=== PATIENT | male | born 1960 | race Caucasian/White ===

== ENCOUNTER 2018-02-26 07:28 | Day surgery (SDC) | payer BC ==
[2018-02-25 15:02] LABS: Potassium 4.1 mEq/L (3.6-5.0)
[2018-02-25 15:11] LABS: Absolute Lymphocytes (CBC) 3.2 K/uL (0.7-4.9); Absolute Monocytes 0.8 K/uL (0.1-1.3); Absolute Neutrophil 4.6 K/uL (1.8-8.0); Basophils % 0.5 % (0-1.3); Eosinophils % 1.7 % (0-4.4); Lymphocytes % 36.9 % (15.3-44.8); MCH 30.2 pg (27.0-35.0); MCV 91.3 fL (80-100); MPV 8.4 fL (7.6-11.3); Monocytes % 8.9 % (3.3-12.3); RBC Red Blood Cell Count 5.37 M/uL (4.33-5.43)
[2018-02-25 15:30] LABS: Albumin 4.1 g/dL (3.2-5.5); Bilirubin Direct 0.1 mg/dL (0-0.2); Bilirubin Total 0.7 mg/dL (0.3-1.2); Protein, Total 7.2 g/dL (6.0-8.3)
--- NOTE | 2018-02-26 06:23 | EKG ---
Test Date: 2018-02-25 Test Time: 14:39:37 Promotions Assistant Sales Marketing: JOSE M MEASUREMENT RESULTS: Intervals: Rate: 73 SC: 144 QRSD: 92 QT: 352 QTc: 387 [place]: P: 66 SC: 144 QRS: 14 T: 29 INTERPRETIVE STATEMENTS: Normal sinus rhythm Normal ECG Compared to ECG 09/12/2011 19:20:23 No significant changes Electronically Signed On 02-26-18 06:22:55 CDT by Rey Persaud
--- OUTSIDE RECORDS SUMMARY | 2018-02-26 07:31 | XMS REPORT ---
:1960 Author Organization [facility] Address [address] [place] [phone] Phone Allergies, Adverse Reactions, Alerts Allergy Name Reaction Description Start Date Severity Status Provider No Known Allergies Ela Leo MA Conditions or Problems Problem Name Problem Onset Status Entry Provider Comment Standard Annotate Code Date Date Description ASTIGMATISM 367.20 Active Justine Astigmatism, 10/17 10/17 [place] unspecified MYOPIA 367.1 Active Justine Myopia 10/17 10/17 [place] PRESBYOPIA 367.4 Active Justine Presbyopia 10/17 10/17 [place] High 272.0 Active Charlie Pure cholesterol Mahan hypercholesterolemi POSTPARTUM RN-C a Chest pain 786.50 Active Charlie Unspecified chest 06/12 06/12 Mahan pain POSTPARTUM RN-C Cigarette 305.1 Active Charlie Tobacco use smoker 06/12 06/12 Mahan disorder POSTPARTUM RN-C Hypertension 401.9 Active Charlie Unspecified 06/12 06/12 Mahan essential POSTPARTUM RN-C hypertension Screening, colon ICD-V76.51 Inactive Charlie cancer Mahan POSTPARTUM RN-C Preventative ICD-V70.0 Inactive Charlie health care Mahan POSTPARTUM RN-C Screening, colon V76.51 Resolved Charlie Screening for cancer Mahan malignant POSTPARTUM RN-C neoplasms of colon Preventative V70.0 Resolved Charlie Routine general health care Mahan medical POSTPARTUM RN-C examination at a health care facility Medication List Medication Instructions Start Stop Generic NDC Status Provider Patient Date Date Name Instruction NITROSTAT Place one NITROGLYCERIN 28096579953 Active Charlie Active 0.4 MG tablet Mahan SUBLINGUAL under the POSTPARTUM RN-C TABLET tongue SUBLINGUAL every 5 minutes as needed for chest pain for max of three doses LISINOPRIL 10 Take one LISINOPRIL 10 [id number] LISINOPRIL Inactive MG ORAL TABLET tablet by MG ORAL mouth TABLET once daily LISINOPRIL Take LISINOPRIL 49560903946 No Charlie Active 10 MG ORAL one Longer Mahan TABLET tablet Active POSTPARTUM RN-C by mouth once daily Vital Signs Date Name Value Unit Range Description blood pressure, diastolic 88 mm[Hg] BP uribe blood pressure, systolic 143 mm[Hg] BP sys height E&M 70 [in_us] Bdy height pulse rate E&M 78 /min Heart rate respiratory rate E&M 16 /min Resp rate temperature E&M 98.7 [degF] Body temperature weight E&M 237 [lb_av] Weight Measured blood pressure, diastolic, second 114 mm[Hg] BP uribe observation blood pressure, diastolic 119 mm[Hg] BP uribe blood pressure, systolic, second 158 mm[Hg] BP sys observation blood pressure, systolic 168 mm[Hg] BP sys height E&M 70 [in_us] Bdy height pulse rate E&M 78 /min Heart rate temperature E&M 97.8 [degF] Body temperature weight E&M 233 [lb_av] Weight Measured Diagnostic Results Date Name Value Unit Range Description Lab Report: CBC With Differential/Platelet, Comp. Metabolic Panel (14), ... - Hematology basophils as percent of blood leukocytes 0 % Lab Report: CBC With Differential/Platelet, Comp. Metabolic Panel (14), ... - Chemistry calcium, serum 10.1 mg/dL 8.7-10.2 Lab Report: CBC With Differential/Platelet, Comp. Metabolic Panel (14), ... - Hematology lymphocyte count, blood, automated 3.1 X10E3/UL 10*3/mm3 0.7- 3.1 Lab Report: CBC With Differential/Platelet, Comp. Metabolic Panel (14), ... - Chemistry urea nitrogen, blood 11 mg/dL 6-24 Lab Report: CBC With Differential/Platelet, Comp. Metabolic Panel (14), ... - Hematology monocyte count, blood, automated 0.7 X10E3/UL 10*3/uL 0.1-0.9 Lab Report: CBC With Differential/Platelet, Comp. Metabolic Panel (14), ... - Chemistry immature granulocytes, percentage of total cells, blood 0 % urea nitrogen/creatinine ratio, serum 11 9-20 Lab Report: CBC With Differential/Platelet, Comp. Metabolic Panel (14), ... - Genetics/fertility eGFR if 94 mL/min/1.73m2 >59 Lab Report: CBC With Differential/Platelet, Comp. Metabolic Panel (14), ... - Chemistry creatinine, serum 1.03 mg/dL 0.76-1.27 Lab Report: CBC With Differential/Platelet, Comp. Metabolic Panel (14), ... - Hematology mean corpuscular volume, RBC 90 fL 79-97 Lab Report: CBC With Differential/Platelet, Comp. Metabolic Panel (14), ... - Chemistry chloride, serum 100 mmol/L 96-106 Lab Report: CBC With Differential/Platelet, Comp. Metabolic Panel (14), ... - Hematology lymphocytes as percent of blood leukocytes 33 % Lab Report: CBC With Differential/Platelet, Comp. Metabolic Panel (14), ... - Chemistry triglyceride, serum, fasting 222 mg/dL 0-149 Lab Report: CBC With Differential/Platelet, Comp. Metabolic Panel (14), ... - Hematology erythrocyte (RBC) count 5.30 X10E6/UL 10*6/mm3 4.14-5.80 Lab Report: CBC With Differential/Platelet, Comp. Metabolic Panel (14), ... - Chemistry Estimated Glomerular Filtration Rate (calc) 81 mL/min/1.73m2 > 59 Lab Report: CBC With Differential/Platelet, Comp. Metabolic Panel (14), ... - Hematology platelet count 281 X10E3/UL 10*3/mm3 562-885 9027/09/27 red blood cell distribution width 14.7 % 12.3-15.4 Lab Report: CBC With Differential/Platelet, Comp. Metabolic Panel (14), ... - Chemistry carbon dioxide, venous blood 26 mmol/L 18-29 protein, total, serum 7.2 g/dL 6.0-8.5 HDL cholesterol, serum 40 mg/dL >39 sodium, serum 141 mmol/L 622-908 5061/09/27 hemoglobin A1C, blood, as % of total hemoglobin 5.6 % 4.8-5.6 Lab Report: CBC With Differential/Platelet, Comp. Metabolic Panel (14), ... - Hematology eosinophils as percent of blood leukocytes 2 % Lab Report: CBC With Differential/Platelet, Comp. Metabolic Panel (14), ... - Chemistry albumin/globulin ratio, serum 1.8 1.2-2.2 Absolute Neutrophils 5.4 X10E3/UL 10*3/uL 1.4-7.0 alkaline phosphatase, serum 73 U/L 39-117 Lab Report: CBC With Differential/Platelet, Comp. Metabolic Panel (14), ... - Hematology basophil count, absolute 0.0 x10E3/uL 0.0-0.2 Lab Report: CBC With Differential/Platelet, Comp. Metabolic Panel (14), ... - Chemistry alanine aminotransferase (SGPT), serum 21 U/L 0-44 Lab Report: CBC With Differential/Platelet, Comp. Metabolic Panel (14), ... - Hematology Eosinophil Absolute Count 0.2 X10E3/UL 10*3/uL 0.0-0.4 Lab Report: CBC With Differential/Platelet, Comp. Metabolic Panel (14), ... - Chemistry LDL cholesterol, serum 158 mg/dL 0-99 Lab Report: CBC With Differential/Platelet, Comp. Metabolic Panel (14), ... - Hematology monocytes as percent of blood leukocytes 7 % mean corpuscular hemoglobin, RBC 30.8 pg 26.6-33.0 Lab Report: CBC With Differential/Platelet, Comp. Metabolic Panel (14), ... - Chemistry cholesterol, serum 242 mg/dL 100-199 Lab Report: CBC With Differential/Platelet, Comp. Metabolic Panel (14), ... - Hematology mean corpuscular hemoglobin concentration, RBC 34.2 G/DL % 31.5- 35.7 Lab Report: CBC With Differential/Platelet, Comp. Metabolic Panel (14), ... - Chemistry bilirubin, serum, total 0.5 mg/dL 0.0-1.2 Lab Report: CBC With Differential/Platelet, Comp. Metabolic Panel (14), ... - Hematology hemoglobin, blood 16.3 g/dL 12.6-17.7 neutrophils as percent of blood 58 % leukocytes leukocyte count, blood 9.4 X10E3/UL 10*3/mm3 3.4-10.8 hematocrit, blood 47.7 % 37.5-51.0 Lab Report: CBC With Differential/Platelet, Comp. Metabolic Panel (14), ... - Chemistry blood glucose, random 105 mg/dL 65-99 potassium, serum 5.0 mmol/L 3.5-5.2 globulin, serum 2.6 1.5-4.5 aspartate aminotransferase (SGOT), serum 20 U/L 0-40 albumin, serum 4.6 g/dL 3.5-5.5 very low density lipoproteins 44 mg/dL 5-40 Encounters Date Encounter Provider Code Facility Est Patient Exp Charlie Mahan POSTPARTUM RN-C CPT-28306 [facility] 14:17:49 CDT Problem - 39352 New Patient Detailed Charlie Mahan POSTPARTUM RN-C CPT-68039 [facility] 08:37:26 CDT - 70494 Procedures Code Procedure Name Date Entry Date Standard Description CPT-66731 Xray - Chest - PA & Lat 12:42:42 - InHouse CDT CPT-38145 EKG - Tracing Only 11:22:22 CDT
[2018-02-26] MEDS ORDERED: Ringers Lactate 1,000 ML IV ONE ×2 (08:23→12:38)
[2018-02-26] MEDS ORDERED: CEFOXITIN/SWI 1gm 1 GM/10 ML SYR ONE (09:24)
[2018-02-26] MEDS ORDERED: LIDOCAINE 1% MPF 5 ML VIAL ONE (11:01)
[2018-02-26] MEDS ORDERED: PROPOFOL 200 MG/20 ML VIAL IV ONE (11:01)
[2018-02-26] MEDS ORDERED: ROCURONIUM 50 MG/5 ML VIAL IV ONE (11:01)
[2018-02-26] MEDS ORDERED: FENTANYL CITR 100 MCG/2 ML ONE ×2 (11:01→11:42)
[2018-02-26] MEDS ORDERED: MIDAZOLAM HCL 2 MG/2 ML INJ ONE (11:01)
[2018-02-26] MEDS ORDERED: GLYCOPYRROLATE 0.2 MG/ML SYR ONE (11:32)
[2018-02-26] MEDS ORDERED: KETOROLAC 30 MG/ML INJ ONE (11:32)
[2018-02-26] MEDS ORDERED: NEOSTIGMINE 1 MG/ML -5 ML SYRINGE ONE (11:33)
[2018-02-26] MEDS ORDERED: MEPERIDINE HCL 25 MG/0.5 ML ONE ×3 (12:35→12:49)
[2018-02-26] MEDS ORDERED: ONDANSETRON 4 MG/2 ML VIAL ONE (12:35)
--- NOTE | 2018-02-26 12:42 | P.BOP ---
Preoperative diagnosis: acute cholecystitis, symptomatic cholelithiasis Postoperative diagnosis: same Primary procedure: Laparoscopic cholecystectomy Estimated blood loss: <10cc Specimen: gb Findings: as above Anesthesia: General Complications: None Drain(s): Other Transferred to: Recovery Room Condition: Good
[2018-02-26 12:48] VITALS: O2SAT 100
[2018-02-26] MEDS: FENTANYL CITR 100 MCG/2 ML ONE ×2 (12:57→13:05)
[2018-02-26] MEDS: HYDROCODONE/APAP 5/325 MG TAB ONE ×2 (13:50→15:20)
[2018-02-26] MEDS ORDERED: HYDROCODONE/APAP 5/325 MG TAB ONE (15:23)
[2018-02-26 16:29] VITALS: TEMP 97.6
[2018-02-26 16:30] VITALS: BP 135/88
--- NOTE | 2018-02-28 01:33 | OP ---
Date of Procedure: 02/26/2018 Surgeon: Bryce Fierro MD Anesthesiologist: Dr. Wolf. Preoperative Diagnosis: Acute cholecystitis, symptomatic cholelithiasis. Postoperative Diagnosis: Acute cholecystitis, symptomatic cholelithiasis. Procedure: Laparoscopic cholecystectomy. Anesthesia: General plus local. Indication For Procedure: This is the case of a 57-year-old patient, who came to us with on and off abdominal pain, epigastric, right upper quadrant, associated with nausea and vomiting on and off. He has been dealing with this for the last few weeks. Finally, he investigated his gallbladder and fou nd to have the disease in that area and patient wanted the gallbladder excised. The benefits, altern atives, and risks of laparoscopic, possible open cholecystectomy fully explained to the patient, whic h include but are not limited to infection, bleeding, damage to adjacent structures, anesthesia compl ication, cholelithiasis, bile leak, pancreatitis, [place], or even . He also understands this may no t relieve any symptoms. He might need more than one surgical intervention. He understood and signed the consent. Description Of Procedure: The patient was brought to the operating room, placed in supine position. Anesthesia was done without complication. Abdominal area was prepped and draped in usual sterile fa shion. Marcaine 0.5% injected for local anesthetic, followed by sharp incision of skin in the infrau mbilical region. Incision was carried down to fascia, which was opened under direct vision. Periton eum was encountered and opened under direct vision. Vicryl #1 placed inside the fascia. Jones troc ar was carefully introduced. No bleeding was obtained. After that I proceeded then to place 2 more trocars, 5 mm each one of them, in the right upper quadrant. We visualized the area of the gallbladd er, looked like a distended thickened gallbladder. We put an Endo needle under direct visualization and proceeded to deflate the gallbladder under direct visualization. After that I proceeded to remov e the needle, put a grasper on the fundus of the gallbladder, another grasper in the infundibulum, re tracted the gallbladder in the inferolateral fashion exposing the triangle of Calot and outstanding c ritical view of safety. Cystic duct and cystic artery were clearly isolated free circumferentially a nd a connection between those and the gallbladder was clearly identified. Small cystic artery branch was identified also. We proceeded on to check the cystic duct. It was a little bit bigger than the 5 mm clips. We made sure that we protected common bile duct at all times. We changed the trocar on the epigastric area to a 12-mm trocar, put an Endo MARCIE 45 mm 3.5, and transected the cystic duct. N o bile leak. The cystic artery was ligated with 3 clips proximal, 1 clip distal, and ligation in mid dle. A small cystic artery branch was also ligated using the same technique. The hepatic artery was protected at all times. Common bile duct was protected at all times. Gallbladder was removed from liver using Bovie cauterizer and removed from abdominal cavity using an EndoCatch through the umbilic al incision. The area was inspected once again. No bile leak. No bleeding. Clips were intact. Ga llbladder fossa with no bleeding. At that moment, I proceeded to remove the trocars under direct vis ion. Deflated pneumoperitoneum. Closed the fascia with #1 Vicryl including also the 12 mm trocar on the epigastric area, also closed with #1 Vicryl. Irrigation was done. Subcutaneous tissue closed w ith 3-0 chromic and skin with serenity. Sponge count and instrument counts were correct. The patient tolerated the procedure well. The patient was sent to recovery in stable condition. DISCHARGE SUMMARY Diagnosis: Acute cholecystitis, symptomatic cholelithiasis. Procedure: Laparoscopic cholecystectomy. Disposition: Home. Activity: As tolerated. No heavy lifting. Followup: Follow up in my office in 1 week. Call for appointment [phone]. Keep area dry for 48 ho urs, then may shower. Medications: See orders. KATHRYN/DALEL Voice ID: [id number] Report ID: [id number]
== END 2018-02-26 15:35 | disposition home or self-care (01) ==
LOC: PRE 07:28 → OR 15:35
PROVIDERS: ATTEND Surgery
PROC: 0FT44ZZ Resection of Gallbladder, Percutaneous Endoscopic Approach (ICD-10-PCS; principal; 2018-02-26 09:15)
DX: K80.12 Calculus of gallbladder with acute and chronic cholecystitis without obstruction (principal); F17.210 Nicotine dependence, cigarettes, uncomplicated
CPT/HCPCS: 36415; 80048; 80076; 82150; 83690; 85025; 88304; 88312; 93005; J2175; J2250; J2405; J2710; J3010

== ENCOUNTER 2022-03-04 20:44 | Observation (INO) | payer BC ==
--- OUTSIDE RECORDS SUMMARY | 2022-03-04 20:46 | XMS REPORT | Continuity of Care Document ---
:1960 Author Organization [facility] t Address [address] [place] [address] Care Team Providers Name Role Phone luigi Attending Clinician Unavailable Erwin Attending Clinician [phone] Kalli Attending Clinician [phone] Wei Pool Attending Clinician Unavailable Bharath Attending Clinician Unavailable Daniel Attending Clinician Unavailable Erwin Unavailable [phone] Igor Unavailable [phone] Kalli Unavailable [phone] Payers Payer Name Policy Type Policy Number Effective Date Expiration Date S ource Self Pay P [id number] 2017 00:00:00 Problems Condition Condition Condition Status Onset Resolution Last Treating Co mments Source Name Details Category Date Date Treatment Clinician Date Presbyopia Condition Active 2020-092021-08-23 Adrian Hood - OU 10-24 15:19:03 Marco Casey 00:00: ty 00 Health Regular Condition Active 2020-092021-08-23 Karen Hood astigmatis 10-24 15:19:03 Marco romero m, left 00:00: ty eye 00 Health Hyperopia, Condition Active 2020-092021-08-23 Adrian Hood right 10-24 15:19:03 Marco Casey 00:00: ty 00 Health ASTIGMATIS Condition Active 2021-08-23 Adrian Costa M 15:14:15 Justine Communi 00:00: ty 00 Health MYOPIA Condition Active 2021-08-23 Karen Costa 2 15:14:15 Justine Communi 00:00: ty 00 Health PRESBYOPIA Condition Active 2021-08-23 CostaAdrian hicks 2 15:14:15 Just[facility] Communi 00:00: ty 00 Health High Condition Active 2016-092017-07-11 Duane Mahan egzhane cholestero 14:12:29 Charlie Sam uni l 00:00: ty 00 Health Hypertensi Condition Active 2017-07-10 Adrian Mahan on 06-12 10:30:13 Charlie Communi 00:00: ty 00 Health Cigarette Condition Active 2017-07-10 Adrian Mahan smoker 06-12 10:30:13 Charlie Communi 00:00: ty 00 Health Chest pain Condition Active 2017-07-10 Adrian Mahan 06-12 10:30:13 Charlie Communi 00:00: ty 00 Health Primary Primary Problem Active 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 - [facility] left knee left knee [facility] History of Past Illness Condition Condition Condition Status Onset Resolution Last Treating Co mments Source Name Details Category Date Date Treatment Clinician Date Screening, Condition Inactiv 2016-092017-07-11 2017-07-11 Adrian Mahan colon e 00:00:00 14:17:54 Charlie Cassidy i cancer 00:00: ty 00 Health Preventati Condition Inactiv 2017-07-10 2017-07-10 Adrian Mahan ve health e 06-12 00:00:00 10:54:01 Charlie Com tim care 00:00: ty 00 Health Allergies, Adverse Reactions, Alerts This patient has no known allergies or adverse reactions. Social History Social Habit Start Date Stop Date Quantity Comments Source time of call 2018-01-29 2018-01-29 01/29/2018 11:32 [facility] 11:32:00 11:32:00 AM [facility] Health PHQ2 Questionairre 2017-07-10 2017-07-10 [facility] Score 09:58:36 09:58:36 [facility] passive cigarette 2017-07-10 2017-07-10 No [facility] smoke exposure 09:58:36 09:58:36 [facility] assessment of health 2017-07-10 2017-07-10 Adequate [place] cy literacy (NCQA [facility] 09:58:36 09:58:36 Renee fan 2014 Standards, Health 3C10) social history 2017-07-10 2017-07-10 reviewed today [facility] reviewed E&M 09:58:36 09:58:36 [facility] drug use 2017-07-10 2017-07-10 Never [facility] 09:58:36 09:58:36 [facility] alcohol use 2017-07-10 2017-07-10 Never [facility] 09:58:36 09:58:36 [facility] albumin, serum 2017-06-12 2017-06-12 4.6 g/dL [facility] 11:42:00 11:42:00 [facility] cigarettes, number 2017-06-12 2017-06-12 pack a day [facility] smoked per day 10:18:30 10:18:30 [facility] sexual orientation 2017-06-12 2017-06-12 Heterosexual Lega cy 10:18:30 10:18:30 [facility] sex at 2017-06-12 2017-06-12 Male [facility] 10:18:30 10:18:30 [facility] patient considered 2017-06-12 2017-06-12 No [facility] to be homeless 10:18:30 10:18:30 [facility] Smoking Status Start Date Stop Date Source Smokes tobacco daily (finding) 2017-07-10 09:58:36 [facility] Medications Ordered Filled Start Stop Current Ordering Indication Dosage Frequency Signature Comments Components Source Medication Medication Date Date Medication? Clinician (SIG) Name Name Wesley Olson 2019- No Benjamin 1 tablet Com mon [id number] [facility] 00:00: 00:00 - [facility] 00 :00 [facility] NITROSTAT 2016-[address] one Leg acy (NITROGLYCE 0-25 Mahan tablet Com tim RIN) 0.4 MG 00:00: under the t y SUBL 00 tongue Health every 5 minutes as needed for chest pain for max of three doses (LISINOPRIL 2016- No Take one L egacy ) 10 MG 06-12 tablet by Commun i TABS 00:00: 00:00 mouth once ty 00 :00 daily Health ibuprofen ibuprofen Yes Benjamin 1 tab C gema Castro [facility] Vital Signs Vital Name Observation Time Observation Value Comments Source blood pressure, 2017-07-10 09:58:36 88 mm[Hg] Leg[facility] diastolic Health blood pressure, 2017-07-10 09:58:36 143 mm[Hg] Leg[facility] systolic Health respiratory rate E&M 2017-07-10 09:58:36 16 /min [facility] Health oxygen saturation, 2017-07-10 09:58:36 97 /min [facility] oximetry Health pulse rate 2017-07-10 09:58:36 78 /min [facility] weight E&M 2017-07-10 09:58:36 237 [lb_av] [facility] weight in kilograms 2017-07-10 09:58:36 107.73 kg L [facility] E&M Health temperature E&M 2017-07-10 09:58:36 98.7 [degF] Legac y [facility] Health temperature site 2017-07-10 09:58:36 tympanic L[facility] Health height in 2017-07-10 09:58:36 [facility] E&M Health blood pressure, 2017-06-12 10:18:30 168 mm[Hg] Legac y [facility] systolic Health temperature site 2017-06-12 10:18:30 tympanic [facility] oxygen saturation, 2017-06-12 10:18:30 97 /min [facility] oximetry Health pulse rate 2017-06-12 10:18:30 78 /min [facility] temperature E&M 2017-06-12 10:18:30 97.8 [degF] Legac y [facility] Health weight E&M 2017-06-12 10:18:30 233 [lb_av] [facility] weight in kilograms 2017-06-12 10:18:30 105.91 kg L [facility] E&M Health height in 2017-06-12 10:18:30 177.80 [facility] E[facility]M Health blood pressure, 2017-06-12 10:18:30 119 mm[Hg] Legac y [facility] diastolic Health Procedures Procedure Date / Time Performed Performing Clinician Sourc e Spherocyl, SV, plano 2019-04-28 15:22:14 Costa, Justine [facility] to +/- 4.00d sphere, Health 0.12 to 2.00d cyl, per lens Frames, purchases 2019-04-28 15:21:30 Costa, Justine [facility] Tint, photochromatic, 2018-03-31 09:45:39 Costa, Justine [facility] Community per lens Health Sphere, SV, plano to 2018-03-31 09:44:56 Costa, Justine [facility] plus or minus 4.00, Health per lens Spherocyl, bif, plano 2018-01-13 08:54:30 Costa, Justine [facility] to +/- 4.00d sphere, Health 0.12 to 2.00d cyl, per lens Frames, purchases 2018-01-13 08:53:48 Costa, Justine [facility] Spherocyl, SV, plano 2017-10-17 08:04:08 Costa, Justine [facility] Community to +/- 4.00d sphere, Health 0.12 to 2.00d cyl, per lens EKG - Tracing Only 2017-06-12 11:18:06 Charlie Mahan Co [facility] Dental - Internal 2017-06-12 11:12:46 Charlie Mahan Com [facility] Health Encounters Start End Encounter Admission Attending Care Care Encounter Source Date/Time Date/Time Type Type Clinicians Facility Department ID 2022-01-26 Outpatient psiyadi [facility] [id number] [facility] 08:35:03 [id number] [facility] 2021-08-25 Outpatient psijimons [facility] [id number] [facility] 20:31:46 [id number] [facility] 2021-08-23 2021-08-23 Office Marco Hood [facility] Encoun ter/ [facility] 00:00:00 00:00:00 Visit [id number] Com tim [id number] [facility] 2020-05-16 2020-05-16 [facility] [id number] Common 10:05:00 10:05:00 t [facility] 2018-12-08 2018-12-08 [facility] [id number] Common 09:40:00 09:40:00 t Bone Bone and Spiri t and Joint [facility] 2018-11-10 2018-11-10 [facility] [id number] Common 09:30:00 09:30:00 t Bone Bone and Spiri t and Joint [facility] 2018-10-30 2018-10-30 [facility] [id number] Common 11:11:00 11:11:00 t Bone Bone and Spiri t and Joint [facility] 2018-10-23 2018-10-23 [facility] [id number] Common 15:45:00 15:45:00 t Bone Bone and Spiri t and Joint [facility] 2018-10-21 2018-10-21 [facility] [id number] Common 11:04:00 11:04:00 t Bone Bone and Spiri t and Joint [facility] 2018-10-21 2018-10-21 [facility] [id number] Common 08:00:00 08:00:00 t Bone Bone and Spiri t and [facility] 2017-07-10 2017-07-11 Office Charlie Mahan [facility] [id number] [facility] 00:00:00 00:00:00 Visit Ela Pool [id number] [facility] [employer] Messaging 2017-06-12 2017-06-13 Office Charlie Mahan [facility] [id number] [facility] 00:00:00 00:00:00 Visit Yenni Sinha [id number] [facility] Results Test Description Test Time Test Comments Results Result Comments Source hemoglobin A1C, blood, as % of total hemoglobin 2017-06-12 1 1:42:00 Test Item Value Reference Range Interpretation Comme nts hemoglobin A1C, blood, as % of total hemoglobin (test code = 5.6 % 4.8-5.6 4548-4) [facility], [id number] 11:42:00 Test Item Value Reference Range Interpretation Comments LDL cholesterol, serum (test code = 158 mg/dL 0-99 H 2088-09) [facility] low density [id number] 11:42:00 Test Item Value Reference Range Interpretation Comments very low density lipoproteins (test 44 mg/dL 5-40 H code = 2090-7) [facility]HDL cholesterol, [id number] 11:42:00 Test Item Value Reference Range Interpretation Comments HDL cholesterol, serum (test code = 40 mg/dL >39 2085-05) [facility]lycer[facility], serum, [id number] 11:42:00 Test Item Value Reference Range Interpretation Comments triglyceride, serum, fasting (test 222 mg/dL 0-149 H code = 2571-8) [facility]cholesterol, [id number] 11:42:00 Test Item Value Reference Range Interpretation Comments cholesterol, serum (test code = 242 mg/dL 100-199 H 2092-) [facility] Healthalanine aminotransferase (SGPT), [id number] 11:42:00 Test Item Value Reference Range Interpretation Comments alanine aminotransferase (SGPT), serum 21 1/L 0-44 (test code = 1742-6) [facility] Healthaspartate aminotransferase (SGOT), [id number] 11:42:00 Test Item Value Reference Range Interpretation Comments aspartate aminotransferase (SGOT), 20 1/L 0-40 serum (test code = 1920-8) [facility] Healthalkaline phosphatase, [id number] 11:42:00 Test Item Value Reference Range Interpretation Comments alkaline phosphatase, serum (test code 73 1/L 39-117 = 1783-0) [facility]bilirubin, serum, [id number] 11:42:00 Test Item Value Reference Range Interpretation Comments bilirubin, serum, total (test code 0.5 mg/dL 0.0-1.2 = 1975-2) [facility] Healthalbumin/globulin ratio, [id number] 11:42:00 Test Item Value Reference Range Interpretation Comments albumin/globulin ratio, 1.8 (unknown unit) 1.2-2.2 serum (test code = 1759-0) [facility] Healthglobulin, [id number] 11:42:00 Test Item Value Reference Range Interpretation Comments globulin, serum (test code 2.6 (unknown unit) 1.5-4.5 = 2336-6) [facility] Healthalbumin, [id number] 11:42:00 Test Item Value Reference Range Interpretation Comments albumin, serum (test code = 1751-7) 4.6 g/dL 3.5-5.5 [facility] Healthprotein, total, [id number] 11:42:00 Test Item Value Reference Range Interpretation Comments protein, total, serum (test code = 7.2 g/dL 6.0-8.5 2885-2) [facility] Healthcalcium, [id number] 11:42:00 Test Item Value Reference Range Interpretation Comments calcium, serum (test code = 10.1 mg/dL 8.7-10.2 1999-) [facility]carbon dioxide, venous [id number] 11:42:00 Test Item Value Reference Range Interpretation Comments carbon dioxide, venous blood (test 26 mmol/L -29 code = 2026-1) [facility] Healthchloride, [id number] 11:42:00 Test Item Value Reference Range Interpretation Comments chloride, serum (test code = 100 mmol/L 96-106 5-0) [facility] Healthpotassium, [id number] 11:42:00 Test Item Value Reference Range Interpretation Comments potassium, serum (test code = 5.0 mmol/L 3.5-5.2 2823-3) [facility] Healthsodium, [id number] 11:42:00 Test Item Value Reference Range Interpretation Comments sodium, serum (test code = 2951-2) 141 mmol/L 134-144 [facility] Healthurea nitrogen/creatinine ratio, [id number] 11:42:00 Test Item Value Reference Range Interpretation Comments urea nitrogen/creatinine 11 (unknown unit) 9-20 ratio, serum (test code = 3097-3) [facility] HealtheGFR if [id number] 11:42:00 Test Item Value Reference Range Interpretation Comments eGFR if 94 mL/min/{1.73 m2} >59 (test code = 81112-7) [facility] HealthEstimated Glomerular Filtration Rate (calc)2017-06-12 11:42:00 Test Item Value Reference Range Interpretation Comments Estimated Glomerular 81 mL/min/{1.73 m2} >59 Filtration Rate (calc) (test code = 65691-0) [facility] Healthcreatinine, [id number] 11:42:00 Test Item Value Reference Range Interpretation Comments creatinine, serum (test code = 1.03 mg/dL 0.76-1.27 2160-0) [facility] Healthurea nitrogen, [id number] 11:42:00 Test Item Value Reference Range Interpretation Comments urea nitrogen, blood (test code = 11 mg/dL 6-24 3094-0) [facility] Healthblood glucose, [id number] 11:42:00 Test Item Value Reference Range Interpretation Comments blood glucose, random (test code = 105 mg/dL 65-99 H 2339-0) [facility] Healthimmature granulocytes, percentage of total cells, blood 2017-06-12 11:42:00 Test Item Value Reference Range Interpretation Comments immature granulocytes, percentage of 0 % total cells, blood (test code = 20747-7) [facility] Healthbasophil count, [id number] 11:42:00 Test Item Value Reference Range Interpretation Comments basophil count, absolute (test 0.0 x10E3/uL 0.0-0.2 code = 98931-4) [facility] HealthEosinophil Absolute [id number] 11:42:00 Test Item Value Reference Range Interpretation Comments Eosinophil Absolute Count (test 0.2 X10E3/UL 0.0-0.4 code = 32857-5) [facility] Healthmonocyte count, blood, [id number] 11:42:00 Test Item Value Reference Range Interpretation Comments monocyte count, blood, automated 0.7 X10E3/UL 0.1-0.9 (test code = 742-7) [facility] Healthlymphocyte count, blood, [id number] 11:42:00 Test Item Value Reference Range Interpretation Comments lymphocyte count, blood, 3.1 X10E3/UL 0.7-3.1 automated (test code = 731-0) [facility] HealthAbsolute [id number] 11:42:00 Test Item Value Reference Range Interpretation Comments Absolute Neutrophils (test code 5.4 X10E3/UL 1.4-7.0 = 45206-1) [facility] Healthbasophils as percent of blood [id number] 11:42:00 Test Item Value Reference Range Interpretation Comments basophils as percent of blood 0 % leukocytes (test code = 707-0) [facility] Healtheosinophils as percent of blood [id number] 11:42:00 Test Item Value Reference Range Interpretation Comments eosinophils as percent of blood 2 % leukocytes (test code = 713-8) [facility] Healthmonocytes as percent of blood [id number] 11:42:00 Test Item Value Reference Range Interpretation Comments monocytes as percent of blood 7 % leukocytes (test code = 5905-5) [facility] Healthlymphocytes as percent of blood [id number] 11:42:00 Test Item Value Reference Range Interpretation Comments lymphocytes as percent of blood 33 % leukocytes (test code = 736-9) [facility] Healthneutrophils as percent of blood [id number] 11:42:00 Test Item Value Reference Range Interpretation Comments neutrophils as percent of blood 58 % leukocytes (test code = 770-8) [facility] Healthplatelet [id number] 11:42:00 Test Item Value Reference Range Interpretation Comments platelet count (test code = 281 X10E3/UL 150-379 777-3) [facility] Healthred blood cell distribution [id number] 11:42:00 Test Item Value Reference Range Interpretation Comments red blood cell distribution width 14.7 % 12.3-15.4 (test code = 788-0) [facility] hemoglobin concentration, [id number] 11:42:00 Test Item Value Reference Range Interpretation Comments mean corpuscular hemoglobin 34.2 G/DL 31.5-35.7 concentration, RBC (test code = 786-4) [facility] corpuscular hemoglobin, [id number] 11:42:00 Test Item Value Reference Range Interpretation Comments mean corpuscular hemoglobin, RBC 30.8 pg 26.6-33.0 (test code = 785-6) [facility] Healthmean corpuscular volume, [id number] 11:42:00 Test Item Value Reference Range Interpretation Comments mean corpuscular volume, RBC (test code 90 fL 79-97 = 787-2) [facility] Healthhematocrit, [id number] 11:42:00 Test Item Value Reference Range Interpretation Comments hematocrit, blood (test code = 4544-3) 47.7 % 37.5-51.0 [facility] Healthhemoglobin, [id number] 11:42:00 Test Item Value Reference Range Interpretation Comments hemoglobin, blood (test code = 16.3 g/dL 12.6-17.7 718-7) [facility] Healtherythrocyte (RBC) [id number] 11:42:00 Test Item Value Reference Range Interpretation Comments erythrocyte (RBC) count (test 5.30 X10E6/UL 4.14-5.80 code = 789-8) [facility] Healthleukocyte count, [id number] 11:42:00 Test Item Value Reference Range Interpretation Comments leukocyte count, blood (test 9.4 X10E3/UL 3.4-10.8 code = 6690-2) [facility]
[2022-03-04] MEDS ORDERED: ASPIRIN 81 MG CHEWABLE TABLET ONE (21:25)
[2022-03-04 21:38] LABS: Absolute Lymphocytes (CBC) 1.8 K/uL (0.7-4.9); Hematocrit 39.1 % (39.6-49.0); MPV 7.6 fL (7.6-11.3); Protime INR 1.05; RBC Red Blood Cell Count 4.35 M/uL (4.33-5.43)
[2022-03-04 21:39] LABS: Albumin 3.5 g/dL (3.4-5.0); Bilirubin Direct 0.1 mg/dL (0-0.2); Bilirubin Total 0.5 mg/dL (0.2-1.0); Potassium 3.6 mmol/L (3.5-5.1); Protein, Total 7.2 g/dL (6.4-8.2); Troponin High Sensitivity 10.5 pg/mL (<58.9)
--- NOTE | 2022-03-04 21:49 | RAD REPORT ---
EXAM DESCRIPTION: RAD - Chest Single View - 03/04/2022 9:36 pm CLINICAL HISTORY: CHEST PAIN COMPARISON: CHEST PA AND LAT 2 VIEW dated 11/18/2013; CHEST PA AND LAT 2 VIEW dated 02/28/2003 FINDINGS: Lines: None. Lungs: No evidence of edema or pneumonia. Pleural: No significant pleural effusions or pneumothorax. Cardiac: The heart size is within normal limits. Bones: No acute fractures. Other: IMPRESSION: No acute cardiopulmonary disease.
--- NOTE | 2022-03-04 22:17 | ER ---
Nurse's Notes [facility] Name: Primitivo Scott Age: 61 yrs Sex: Male : 1960 Arrival Date: 03/04/2022 Time: 20:46 Bed 18 Private MD: Diagnosis: Chest pain, unspecified Presentation: 03/04 20:57 Chief complaint: [place] having pain sm5 underneath his armpit and started getting sweaty and thought he was going to pass out. denies etoh. Coronavirus screen: Vaccine status: Patient reports being unvaccinated. Ebola Screen: No symptoms or risks identified at this time. Initial Sepsis Screen: Does the patient meet any 2 criteria? No. Patient's initial sepsis screen is negative. Does the patient have a suspected source of infection? No. Patient's initial sepsis screen is negative. Risk Assessment: Do you want to hurt yourself or someone else? Patient reports no desire to harm self or others. Onset of symptoms was March 04, 2022. 20:57 Method Of Arrival: Ambulatory [facility] 20:57 Acuity: ALMAZ 3 5 Triage Assessment: 20:58 General: Appears in no apparent distress. Behavior is cooperative. Pain: Complains of sm5 pain in chest and armpit. Neuro: No deficits noted. [place] Agitation-Sedation Scale (RASS): 0 - Alert and Calm Level of Consciousness is awake, alert, obeys commands, Oriented to person, place, time, situation. Cardiovascular: Reports chest pain, Capillary refill < 3 seconds Patient's skin is warm and dry. Rhythm is sinus arrythmia. Historical: - Allergies: 20:58 No Known Allergies; sm5 - Home Meds: 20:58 None [Active]; sm5 - PMHx: 20:58 None; sm5 - Immunization history:: Client reports having NOT received the Covid vaccine. - Social history:: Smoking status: Patient reports the use of cigarette tobacco products, smokes one pack cigarettes per day. Patient/guardian denies using alcohol. Screenin:59 Abuse screen: Denies threats or abuse. Denies injuries from another. Nutritional sm5 screening: No deficits noted. Tuberculosis screening: No symptoms or risk factors identified. Fall Risk None identified. Assessment: 20:59 Pain: Complains of pain in chest Pain radiates to left armpit Pain began 2 hours ago. [facility] 22:00 Reassessment: No changes from previously documented assessment. Patient and/or family [facility] updated on plan of care and expected duration. Pain level reassessed. Vital Signs: 20:57 BP 129 / 94; Pulse 75; Resp 13; Temp 98.5(O); Pulse Ox 99% on R/A; Weight 99.79 kg; 5 Height 5 ft. 10 in. (177.80 cm); Pain 2/10; 22:51 BP 129 / 81; Pulse 65; Resp 20; Pulse Ox 99% on R/A; 5 03/05 00:03 BP 114 / 70; Pulse 62; Resp 17; Pulse Ox 97% on R/A; [facility] 03/04 20:57 Body Mass Index 31.57 (99.79 kg, 177.80 cm) [facility] ED Course: 03/04 20:46 Patient arrived in ED. ja2 20:47 Alicia Lepe, RAJI is Primary Nurse. 5 20:49 Reggie Glaser NP is PHCP. pm1 20:49 Alejandro Martin MD is Attending Physician. pm1 20:58 Triage completed. 5 20:59 Arm band placed on right wrist. EKG completed in triage. Results shown to MD. 5 20:59 Patient has correct armband on for positive identification. Placed in gown. Bed in low sm5 position. Call light in reach. Side rails up X2. Client placed on continuous cardiac and pulse oximetry monitoring. NIBP monitoring applied. 21:02 Initial lab(s) drawn, by me, sent to lab. EKG done, by ED staff, reviewed by Reggie Glaser NP. Inserted saline lock: 20 gauge in left antecubital area, using aseptic technique. Blood collected. 21:03 Adult w/ patient. Warm blanket given. monitoring manager on. Pulse ox on. NIBP on. oe 21:11 LFT's Sent. 5 21:11 Basic Metabolic Panel Sent. 5 21:11 CBC with Diff Sent. 5 21:11 Magnesium Sent. 5 21:11 NT PRO-BNP Sent. 5 21:11 PT-INR Sent. 5 21:11 Troponin HS Sent. 5 21:12 Initial lab(s) drawn, by me, sent to lab. EKG done, by ED staff, reviewed by Reggie Glaser NP. 21:38 XRAY Chest (1 view) In Process Unspecified. EDMS 22:16 Na Toscano MD is Hospitalizing Provider. pm1 03/05 00:02 No provider procedures requiring assistance completed. Patient admitted, IV remains in [address] Patient maintains SpO2 saturation greater than 95% on room air. Administered Medications: 03/04 21:21 Drug: Aspirin Chewable Tablet 324 mg Route: PO; [facility] 22:52 Follow up: Response: No adverse reaction [facility] Medication: 20:59 VIS not applicable for this client. [facility] Outcome: 22:16 Decision to Hospitalize by Provider. pm1 03/05 00:02 Admitted to Tele accompanied by tech, via wheelchair, with chart, Report called to alessia Fang RN Condition: stable Instructed on the need for admit. 00:04 Patient left the ED. [facility] Signatures: Dispatcher [employer] EDWI Reggie Glaser, FATEMEH GRAIN TRADER pm1 Khlaif Cbaezas Maria Pauly Nolasco Sarah, RAJI RN alessia
--- NOTE | 2022-03-04 22:17 | EDPHYS ---
Physician Documentation [facility] Name: Primitivo Scott Age: 61 yrs Sex: Male : 1960 Arrival Date: 03/04/2022 Time: 20:46 Bed 18 Private MD: ED Physician Alejandro Martin HPI: 03/04 21:06 This 61 yrs old Male presents to ER via Ambulatory with complaints of Chest Pain. pm1 21:06 The patient or guardian reports chest pain that is located primarily in the Left axilla pm1 and left chest. Onset: today, at 18:30. 21:06 The pain does not radiate. Associated signs and symptoms: Pertinent positives: pm1 diaphoresis, dizziness, Pertinent negatives: abdominal pain, headache, nausea, palpitations, shortness of breath. The chest pain is described as a pressure. Duration: The patient or guardian reports a single episode, that is still ongoing, but improving. Modifying factors: The symptoms are alleviated by nothing. the symptoms are aggravated by nothing. Severity of pain: At its worst the pain was severe a 9 / 10 in the emergency department the pain has improved is a 2 / 10. The patient has not experienced similar symptoms in the past. The patient has not recently seen a physician, the patient's primary care provider is Dr. Valente. Historical: - Allergies: 20:58 No Known Allergies; sm5 - Home Meds: 20:58 None [Active]; sm5 - PMHx: 20:58 None; sm5 - Immunization history:: Client reports having NOT received the Covid vaccine. - Social history:: Smoking status: Patient reports the use of cigarette tobacco products, smokes one pack cigarettes per day. Patient/guardian denies using alcohol. ROS: 21:06 Constitutional: Negative for fever, chills, and weight loss. pm1 21:06 Respiratory: Negative for shortness of breath, cough, wheezing, and pleuritic chest pain, Abdomen/GI: Negative for abdominal pain, nausea, vomiting, diarrhea, and constipation, Back: Negative for injury and pain, MS/Extremity: Negative for injury and deformity, Skin: Negative for injury, rash, and discoloration. 21:06 Cardiovascular: Positive for chest pain, Negative for edema, palpitations. 21:06 Neuro: Positive for dizziness, Negative for headache, numbness, tingling, weakness. 21:06 All other systems are negative. Exam: 21:06 Constitutional: This is a well developed, well nourished patient who is awake, alert, pm1 and in no acute distress. Head/Face: Normocephalic, atraumatic. 21:06 Abdomen/GI: Soft, non-tender, with normal bowel sounds. No distension or tympany. No guarding or rebound. No evidence of tenderness throughout. Skin: Warm, dry with normal turgor. Normal color with no rashes, no lesions, and no evidence of cellulitis. MS/ Extremity: Pulses equal, no cyanosis. Neurovascular intact. Full, normal range of motion. 21:06 Back: No spinal tenderness. No costovertebral tenderness. Full range of motion. 21:06 Cardiovascular: Exam negative for acute changes, Rate: normal, Rhythm: regular, Pulses: no pulse deficits are appreciated, Heart sounds: normal, normal S1and S2. 21:06 Respiratory: Exam negative for acute changes, respiratory distress, shortness of breath, Breath sounds: are clear throughout. 21:06 Neuro: Exam negative for acute changes, Orientation: is normal, Mentation: is normal, Motor: is normal, moves all fours. Vital Signs: 20:57 BP 129 / 94; Pulse 75; Resp 13; Temp 98.5(O); Pulse Ox 99% on R/A; Weight 99.79 kg; [facility] Height 5 ft. 10 in. (177.80 cm); Pain 2/10; 22:51 BP 129 / 81; Pulse 65; Resp 20; Pulse Ox 99% on R/A; [facility] 03/05 00:03 BP 114 / 70; Pulse 62; Resp 17; Pulse Ox 97% on R/A; [facility] 03/04 20:57 Body Mass Index 31.57 (99.79 kg, 177.80 cm) [facility] MDM: 03/04 20:49 Patient medically screened. pm1 22:14 Data reviewed: vital signs. Data interpreted: Pulse oximetry: on room air is 99 %. pm1 Interpretation: normal. Counseling: I had a detailed discussion with the patient and/or guardian regarding: the historical points, exam findings, and any diagnostic results supporting the discharge/admit diagnosis, lab results, radiology results, the need for further work-up and treatment in the hospital. 03/04 21:04 Order name: Basic Metabolic Panel; Complete Time: 21:47 pm1 03/04 21:04 Order name: CBC with Diff; Complete Time: 21:47 pm1 03/04 21:04 Order name: LFT's; Complete Time: 21:47 pm1 03/04 21:04 Order name: Magnesium; Complete Time: 21:47 pm1 03/04 21:04 Order name: NT PRO-BNP; Complete Time: 21:47 pm1 03/04 21:04 Order name: PT-INR; Complete Time: 21:47 pm1 03/04 21:04 Order name: Troponin HS; Complete Time: 21:47 pm1 03/04 21:04 Order name: XRAY Chest (1 view); Complete Time: 21:52 pm1 03/04 21:04 Order name: EKG; Complete Time: 21:04 pm1 03/04 21:04 Order name: Cardiac monitoring; Complete Time: 21:04 pm1 03/04 21:04 Order name: EKG - Nurse/Tech; Complete Time: 21:04 pm1 03/04 21:04 Order name: IV Saline Lock; Complete Time: 21:04 pm1 03/04 22:30 Order name: COVID-19 SARS RT PCR (Document "Date of Onset" if Symptomatic); Complete pm1 Time: 23:34 03/04 21:04 Order name: Labs collected and sent; Complete Time: 21:04 pm1 03/04 21:04 Order name: O2 Per Protocol; Complete Time: 21:04 pm1 03/04 21:04 Order name: O2 Sat Monitoring; Complete Time: 21:04 pm1 Administered Medications: 21:21 Drug: Aspirin Chewable Tablet 324 mg Route: PO; 5 22:52 Follow up: Response: No adverse reaction sm5 Disposition: 03/05 00:20 Co-signature as Attending Physician, Alejandro Martin MD. rn Disposition Summary: 03/04/22 22:16 Hospitalization Ordered Hospitalization Status: Observation pm1 Provider: Na Toscano pm1 Location: Telemetry/MedSurg (observation) pm1 Condition: Stable pm1 Problem: new pm1 Symptoms: have improved pm1 Bed/Room Type: Standard 1 Room Assignment: [facility](03/04/22 23:42) Diagnosis - Chest pain, unspecified pm1 Forms: - Medication Reconciliation Form pm1 - SBAR form pm1 Signatures: Dispatcher [employer] EDMS Carly Miner RN RN mw Alejandro Martin MD MD rn Marinas, Patrick, FATEMEH [employer] MANAGER pm1 Alicia Lepe RN RN sm5 Clare Molina PA PA sb3 Corrections: (The following items were deleted from the chart) 03/04 23:42 22:16 pm1 mw
--- NOTE | 2022-03-04 22:32 | P.HP ---
Certification for Inpatient Patient admitted to: Observation With expected LOS: <2 Midnights Patient will require the following post-hospital care: None Practitioner: I am a practitioner with admitting privileges, knowledge of patient current condition, hospital course, and medical plan of care. Services: Services provided to patient in accordance with Admission requirements found in Title 42 Section 412.3 of the Code of Federal Regulations Patient History Date of Service: 03/04/22 Reason for admission: Chest Pain History of Present Illness: Patient is a 61 y/o M 1ppd smoker who presented to the ED via with complaints of chest pain that began earlier this evening. He [place] he started experiencing left sided substernal chest pain for about 20 minutes. It was associated with diaphroesis and impending doom. Patient denies any previous episodes or any medical problems. He has not had lab work done in a few years. EKG in the ED showed NSR. Troponin negative, labs WNL. Patient states his chest pain has now resolved. He was given 324 mg aspirin. ED provider wishes to admit patient for observation. Allergies No Known Allergies Allergy (Verified 02/26/18 08:56) Home Medications: Sulfamethoxazole/Trimethoprim [Bactrim Ds Tablet] 1 each PO BID #12 tablet 02/26/18 - Past Medical/Surgical History Diabetic: No Past Medical History: Patient denies medical history -: Cholecystectomy Psychosocial/ Personal History: Patient lives at home with his . - Social History Smoking Status: Current every day smoker Alcohol use: No CD- Drugs: No Caffeine use: Yes Place of Residence: Home Review of Systems General: Sweats Cardiovascular: Chest Pain Physical Examination - Physical Exam General: Alert, In no apparent distress HEENT: Atraumatic, PERRLA, Mucous membr. moist/pink, EOMI, Sclerae nonicteric Neck: Supple, 2+ carotid pulse no bruit, No LAD, Without JVD or thyroid abnormality Respiratory: Clear to auscultation bilaterally, Normal air movement Cardiovascular: No edema, Regular rate/rhythm, Normal S1 S2 Gastrointestinal: Normal bowel sounds, No tenderness Musculoskeletal: No tenderness Integumentary: No rashes Neurological: Normal speech, Normal strength at 5/5 x4 extr, Normal tone, Normal affect - Studies Laboratory Data (last 24 hrs) 03/04/22 21:03: PT 11.6, INR 1.05 03/04/22 21:03: WBC 7.1, Hgb 13.7, Hct 39.1 L, Plt Count 267 03/04/22 21:03: Sodium 137, Potassium 3.6, BUN 10, Creatinine 1.30, Glucose 93, Magnesium 2.0, Total Bilirubin 0.5, AST 11 L, ALT 15, Alkaline Phosphatase 78 Assessment and Plan - Problems (Diagnosis) (1) Chest pain Current Visit: Yes Status: Acute Qualifiers: Chest pain type: chest pain due to myocardial ischemia Ischemic chest pain type: unstable angina pectoris Qualified Code(s): I20.0 - Unstable angina (2) Tobacco abuse Current Visit: Yes Status: Chronic - Plan -Initial troponin negative. Trend -Monitor on telemetry -Aspirin and atorvastatin daily -Cardiology consulted -Lipid panel and TSH pending -Lovenox for VTE ppx -Full code Discharge Plan: Home Plan to discharge in: 24 Hours - Advance Directives Does patient have a Living Will: No Does patient have a Durable POA for Healthcare: No - Code Status/Comfort Care Code Status Assessed: Yes (Full) Critical Care: No Time Spent Managing Pts Care (In Minutes): 50
[2022-03-05] MEDS ORDERED: ACETAMINOPHEN 500 MG TAB PO PRN
[2022-03-05] MEDS ORDERED: ONDANSETRON 4 MG/2 ML VIAL IV PRN
[2022-03-05 00:14] VITALS: BMI 32.6
[2022-03-05 03:51] LABS: Absolute Lymphocytes (CBC) 3.3 K/uL (0.7-4.9); Hematocrit 37.7 % (39.6-49.0); Lymphocytes % 49.9 % (15.3-44.8); MPV 7.1 fL (7.6-11.3); RBC Red Blood Cell Count 4.28 M/uL (4.33-5.43)
[2022-03-05 04:33] LABS: Potassium 3.7 mmol/L (3.5-5.1); Thyroid Stimulating Hormone 1.24 uIU/mL (0.360-3.740); Troponin High Sensitivity 9.8 pg/mL (<58.9)
[2022-03-05] MEDS ORDERED: ASPIRIN EC 81 MG TAB PO SCH (09:00)
[2022-03-05] MEDS ORDERED: ENOXAPARIN 40 MG/0.4 ML SQ SCH (09:00)
--- NOTE | 2022-03-05 11:51 | EKG ---
Test Date: 2022-03-04 Test Time: 20:48:17 Hostess Host: EZEQUIEL MEASUREMENT RESULTS: Intervals: Rate: 74 UT: 140 QRSD: 92 QT: 364 QTc: 404 [place]: P: 62 UT: 140 QRS: 20 T: 0 INTERPRETIVE STATEMENTS: Normal sinus rhythm with sinus arrhythmia Normal ECG Compared to ECG 02/25/2018 14:39:37 No significant changes Electronically Signed On 03-05-22 11:50:05 CDT by Duncan Johnson
[2022-03-05 12:04] VITALS: O2SAT 98
[2022-03-05 12:08] VITALS: BP 164/87; TEMP 97.6
--- NOTE | 2022-03-05 12:38 | CON ---
Date of Consultation: 03/05/2022 Reason For Consultation: Chest pain. History Of Present Illness: Mr. Scott is a 61-year-old male, who is a smoker, otherwise has no fami ly history of heart disease. He denies diabetes, hypertension, and dyslipidemia. 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 Yesterday, he was at the [place] with his while watching a concert when he developed left axillary pain that was sharp, stab jemma, radiating to the middle of the chest with some diaphoresis. No nausea, no vomiting. He denied PND, orthopnea, pedal edema, palpitation, or syncope. Symptoms started about 0630 in the evening, l asted about 3-4 hours. When he came to the emergency room, he was still having some chest pain, but his EKG, chest x-ray, troponin, BNP are all normal. He is pain free now. Past Medical History: Negative. Allergies: NONE. Medications: At home negative. Review of Systems: Negative. Social History: Positive for tobacco use. Physical Examination: General: Very pleasant. Vital Signs: Stable, afebrile. HEENT: Negative. Neck: Supple with no bruit. Chest: Clear. Cardiac: Revealed a regular rhythm and rate. No murmurs, gallops, or rubs. Abdomen: Benign. Extremities: Revealed no clubbing, cyanosis, or edema. Diagnostic Data: All within normal limit. Impression And Plan: Atypical chest pain, certainly could be related to coronary artery disease cons idering he smokes in his 60s, but his EKG is normal. Troponin is negative. So, I do not feel the ak ed of doing a heart catheterization on him or being at this point. He does have an echoca rdiogram pending. If that is negative, we can send him home and do an outpatient stress test in the near future. He should probably go home on small dose aspirin, small dose of beta-blockers as well. BEATA/DALEL Voice ID: [id number] Report ID: [id number]
--- NOTE | 2022-03-05 12:55 | P.DS ---
Admission Date: 03/04/22 Discharge Date: 03/05/22 Disposition: ROUTINE DISCHARGE Discharge Condition: GOOD Reason for Admission: Chest Pain Brief History of Present Illness: History of Present Illness: Patient is a 61 y/o M 1ppd smoker who presented to the ED via with complaints of chest pain that began earlier this evening. He reports [place] the [place] when he started experiencing left sided substernal chest pain for about 20 minutes. It was associated with diaphroesis and impending doom. Patient denies any previous episodes or any medical problems. He has not had lab work done in a few years. EKG in the ED showed NSR. Troponin negative, labs WNL. Patient states his chest pain has now resolved. He was given 324 mg aspirin. ED provider wishes to admit patient for observation. Allergies No Known Allergies Allergy (Verified 02/26/18 08:56) Hospital Course: Patient with history of chronic tobacco use admitted for atypical chest pain which spontaneously resolved. He was started on empirical statin as well as aspirin. Serial set of cardiac enzyme was negative. EKG was unchanged and normal sinus rhythm. Patient chest pain did not recur during hospitalization. Patient was felt to be stable for discharge. Advised to do tobacco cessation. Low-dose statin has been started for mild elevated lipid level with LDL of 91 and total cholesterol of 208. Patient advised to follow-up with pulmonary for possibility of outpatient stress test Physical Examination - Physical Exam General: Alert, In no apparent distress HEENT: Atraumatic, PERRLA, Mucous membr. moist/pink, EOMI, Sclerae nonicteric Neck: Supple, 2+ carotid pulse no bruit, No LAD, Without JVD or thyroid abnormality Respiratory: Clear to auscultation bilaterally, Normal air movement Cardiovascular: No edema, Regular rate/rhythm, Normal S1 S2 Gastrointestinal: Normal bowel sounds, No tenderness Musculoskeletal: No tenderness Integumentary: No rashes Neurological: Normal speech, Normal strength at 5/5 x4 extr, Normal tone, Normal affect Vital Signs/Physical Exam: Temp Pulse Resp BP Pulse Ox 97.6 F 56 18 164/87 H 98 03/05/22 12:09 03/05/22 12:09 03/05/22 12:09 03/05/22 12:09 03/05/22 12:09 Laboratory Data at Discharge: WBC 6.7 K/uL (4.3-10.9) 03/05/22 03:35 Hgb 12.9 g/dL (13.6-17.9) L 03/05/22 03:35 Hct 37.7 % (39.6-49.0) L 03/05/22 03:35 Plt Count 230 K/uL (152-406) 03/05/22 03:35 PT 11.6 SECONDS (9.5-12.5) 03/04/22 21:03 INR 1.05 03/04/22 21:03 Sodium 138 mmol/L (136-145) 03/05/22 03:35 Potassium 3.7 mmol/L (3.5-5.1) 03/05/22 03:35 BUN 8 mg/dL (7-18) 03/05/22 03:35 Creatinine 1.10 mg/dL (0.55-1.3) 03/05/22 03:35 Glucose 96 mg/dL (74-106) 03/05/22 03:35 Magnesium 2.0 mg/dL (1.8-2.4) 03/05/22 03:35 Total Bilirubin 0.5 mg/dL (0.2-1.0) 03/04/22 21:03 AST 11 U/L (15-37) L 03/04/22 21:03 ALT 15 U/L (12-78) 03/04/22 21:03 Alkaline Phosphatase 78 U/L (45-117) 03/04/22 21:03 Triglycerides 208 mg/dL (<150) H 03/05/22 03:35 Cholesterol 161 mg/dL (<200) 03/05/22 03:35 HDL Cholesterol 28 mg/dL (40-60) L 03/05/22 03:35 Cholesterol/HDL Ratio 5.75 03/05/22 03:35 Home Medications: Atorvastatin Calcium 10 mg PO DAILY #30 tablet 03/05/22 NK [No Home Meds] 03/05/22 New Medications: Atorvastatin Calcium 10 mg PO DAILY #30 tablet Diet: Low sodium Activity: Ad kerry Followup: Berny Valente DO, DO [Primary Care Provider] - Time spent managing pt's care (in minutes): 35
[2022-03-05] MEDS ORDERED: ATORVASTATIN 40 MG TAB PO SCH (21:00)
--- NOTE | 2022-03-06 08:44 | ECHO ---
HEIGHT: 5 ft 10 in WEIGHT: 227 lb 8 oz DATE OF STUDY: 03/05/[address]: Duncan Johnson MD 2-DIMENSIONAL: YES M.MODE: YES DOPPLER: YES COLOR FLOW: YES TDS: PORTABLE: YES DEFINITY: BUBBLE STUDY: DIAGNOSIS: CHEST PAIN CARDIAC HISTORY: CATHERIZATION: SURGERY: PROSTHETIC VALVE: PACEMAKER: MEASUREMENTS (cm) DIASTOLIC (NORMALS) SYSTOLIC (NORMALS) IVSd 1.2 (0.6-1.2) LA Diam (1.9-4.0) LVEF 55-60% LVIDd 4.7 (3.5-5.7) LVIDs 3.0 (2.0-3.5) %FS 38% LVPWd 1.3 (0.6-1.2) Ao Diam 3.1 (2.0-3.7) 2 DIMENSIONAL ASSESSMENT: RIGHT ATRIUM: NORMAL LEFT ATRIUM: NORMAL RIGHT VENTRICLE: NORMAL LEFT VENTRICLE: NORMAL TRICUSPID VALVE: NORMAL MITRAL VALVE: NORMAL PULMONIC VALVE: NORMAL AORTIC VALVE: NORMAL PERICARDIAL EFFUSION: NONE AORTIC ROOT: NORMAL LEFT VENTRICULAR WALL MOTION: NORMAL DOPPLER/COLOR FLOW: MILD MITRAL REGURGITATION COMMENTS: NORMAL LEFT VENTRICULAR EJECTION FRACTION 55-60% WITH NORMAL WALL MOTION. MILD MITRAL REGURGITATION. POOR WINDOWS TECHNOLOGIST: CHAUNCEY WILEY
== END 2022-03-05 14:06 | disposition home or self-care (01) ==
LOC: ER 20:44 → ERHOLD 22:25 → 2ND 23:56
PROVIDERS: ADMIT Hospitalist; ATTEND Hospitalist
DX: R07.89 Other chest pain (principal); F17.210 Nicotine dependence, cigarettes, uncomplicated; Z28.310 Unvaccinated for COVID-19; Z20.822 Contact with and (suspected) exposure to COVID-19; Z90.49 Acquired absence of other specified parts of digestive tract
CPT/HCPCS: 93005; 93306; 85025 ×2; 80048 ×2; 36415; 83735 ×2; 85610; 80061; 80076; 84443; 84484 ×3; 83880; 71045; 99285; U0003; J1650; G0378 ×2